=== PATIENT | female | born 1935 | race Caucasian/White ===

== ENCOUNTER 2016-07-28 13:09 | Outpatient (RCR) | payer MEDICARE, MEDICAID ==
[~2016-07-28 13:09] MED LIST: ALLO300T2 PO; AML2.5T PO; ASPI-504 PO; ESCI20TA PO; ESCI20TA39 PO; HCT25T GT; MEMA10TA PO; MONT10TA21 PO; OMEP20CA12 PO; ONDAN4ODT PO; POTA-57 PO; TAMO20TA2 PO; TIZA6CAP7 PO; ZOLP10TA PO
--- NOTE | 2016-08-05 09:22 | PT/OT/ST INITIAL EVALUATION ---
Department of Health and Human Services Form Approved [facility] Care Financing Administration OMB No. [id number] PLAN OF CARE/ASSESSMENT FOR OUTPATIENT REHABILITATION (Complete for Initial Claims Only) 1. PATIENT'S NAME Eva Perales 2. ACC # [id number] [id number] 4. PROVIDER NO. [id number] 5. TYPE: PT 6. PRIOR HOSPITALIZATION NA 7. PRIMARY DX Mobility evaluation for use of 4-wheeled walker with brakes 8. SECONDARY DX NA 9. ONSET DATE NA 10. REFERRAL DATE 07/22/2016 11. SOC. DATE 07/28/2016 12. TIME OF EVAL 13:[address] Ismael Swan 13. CHARGES/UNITS Evaluation [id number] 14. G CODES No G code will be done at this time secondary evaluation only. 15. PRIOR LEVEL OF FUNCTION; PERTINENT HISTORY (Prior therapy results, reason for referral.) S: Prior to therapy the patient consented to the evaluation and treatment. The patient is a 80-year-old female who presents to physical therapy for a mobility assessment as she would like to get a new all-wheeled walker with a seat and brakes. Primary Complaint: The patient reports she gets winded with longer distances and currently does have an all-wheeled walker; however, the breaks and wheels are starting to wear out. The patient does ambulate around her apartment without use of an assistive device, but does have a cane if needed. The patient does note falling a couple of times a month secondary to feeling like her legs are giving out. Current level of function: Currently the patient is ambulating to and from her apartment to the [place] her apartment complex with someone ambulating with her. The patient does have assisted housekeeping and medication management. The patient's apartment is all on one level; therefore, stairs will not be an issue. Per her daughter support, they are looking into having increased assistance provided for their mother and they are also looking into the [employer] [facility] in order to assist the patient with improving strength, balance and activity tolerance. Past medical history: Includes bilateral total knee arthroplasty, right ankle fracture, history of falls, difficulty sleeping at night and when she takes medication, OA and use of a CPAP. Current medications: The patient, nor her daughter, provided a list of medications. Patient's Goal: The patient's goal for physical therapy is to be able to get a new all-wheeled walker so that she is able to ambulate outside. 16. INITIAL ASSESSMENT/SAFETY PRECAUTIONS/MEDICAL COMPLICATIONS (Level of function at start of care. Be specific, use objective measures, list problems.) O: APPEARANCE AND OBSERVATION: Assessment of the patient's gait reveals increased trunk sway and past deviation when ambulating without an assistive device. This date she presents to physical therapy with the use of a single-point cane that does decrease her past deviation; however, she does get fatigued with ambulating no more than 30 feet and required a sitting rest break this date. It should be noted that the patient did take both her morning and evening doses of one medication this date, only a couple hours apart per daughters report. It is suspected due to this the patient is having increased difficulty following instructions and staying focused. RANGE OF MOTION/FLEXIBILITY: The patient notes no significant range of motion limitations in the lower extremities. STRENGTH: Lower extremity strength was assessed as follows. Bilateral hip flexion, knee flexion, knee extension and ankle dorsiflexion are 3+/5. BALANCE ASSESSMENT: The patient scores 9 out of 16 on the standing portion and 8 out of 12 on the gait portion for a total of 17 out of 28 on the Tinetti Balance Assessment. The 17 out of 28 does put the patient in a high fall risk category with the cut off being 19 out 28. 17. INITIAL POC: (Specify procedures, modalities, short and detention goals) A: The patient does have significant lower extremity weakness, as well as significant instability and activity tolerance as noted with this assessment. The physical therapist would have concerns with the patient using an all-wheel walker safely including remember to use the brakes prior to sitting, as well as being able to safely control the walker secondary to her weakness and unsteadiness. Despite these issues, the physical therapy does recommend a device with bilateral upper extremities assistance and would recommend a standard front-wheeled walker for this patient. It should be noted, the patient did state that she would just stay in her apartment and not get out and move if she was not allowed to have an all-wheel walker. The patient's concerns with the all-wheel walker were discussed with the patient and her daughter who is present with her this date. P: Plan to see this patient for evaluation only and contacts will be made with the patient's referring physician to make recommendations for a safe assistive device for this patient. Thank you for the referral of this patient. 18. FREQUENCY Evaluation only 19. DURATION NA 20. FUNCTIONAL LEVEL (End of claim period) 21. PHYSICIAN SIGNATURE ? ON FILE OR ENTER HERE: 22. DATE: I certify the need for these services furnished under this plan of care and if for partial hospitalization. 23. CERTIFICATION FROM THROUGH FORM [id number]
== END 2016-08-16 10:18 | disposition home or self-care (01) ==
LOC: PT 13:09
PROVIDERS: ATTEND Family Medicine
DX: R26.81 Unsteadiness on feet (principal); Z91.81 History of falling

== ENCOUNTER → 2016-09-02 | Outpatient (REF) ==
[2016-09-02 15:37] LABS: MEAN CORPUSCULAR HEMOGLOBIN 28.9 PG (26.0-34.0); MEAN CORPUSCULAR HGB CONC 33.8 g/dL (31.0-37.0); MEAN CORPUSCULAR VOLUME 86 FL (80-100); MEAN PLATELET VOLUME 11.2 FL (6.0-9.5); PLATELET COUNT 241 10^3uL (150-450); WHITE BLOOD COUNT 8.41 10^3uL (4.0-11.0)
[2016-09-02 15:57] LABS: ALBUMIN 4.4 g/dL (3.4-5.0); ANION GAP 17.9 MEQ/L (3-15); CALCULATED IONIZED CALCIUM 4.2 mg/dL (3.8-4.6)
[2016-09-02 16:08] LABS: BAND NEUTROPHILS % 2 % (0-6); EOSINOPHILS % 3 % (0-4); LYMPHOCYTES # 1.3 #; MONOCYTES # 0.5 #; MONOCYTES % 6 % (3-11); RBC MORPH NORMAL (NORMAL); SEGMENTED NEUTROPHILS % 73 % (51-67); TOTAL CELLS COUNTED 100
== END ==
LOC: CLAB.BLUES 15:22
PROVIDERS: ATTEND Family Medicine
DX: I10 Essential (primary) hypertension (principal); F32.9 Major depressive disorder, single episode, unspecified
CPT/HCPCS: 80053; 84443; 85007; 85027